=== PATIENT | male | born 2000 | race Caucasian/White ===

== ENCOUNTER 2022-06-07 00:36 | Emergency (ER) | payer SELFPAY ==
[~2022-06-07] VITALS: Ht 185.4 cm; Wt 81.8 kg
[2022-06-07 00:51] VITALS: BP 126/73; TEMP 97.9
[2022-06-07 01:26] VITALS: PULSE 012
== END 2022-06-07 01:26 | disposition home or self-care (01) ==
LOC: COL.ER 00:36
DX: S06.0X1A Concussion with loss of consciousness of 30 minutes or less, initial encounter (principal); S60.512A Abrasion of left hand, initial encounter; S80.811A Abrasion, right lower leg, initial encounter; S50.811A Abrasion of right forearm, initial encounter; S70.312A Abrasion, left thigh, initial encounter; V49.40XA Driver injured in collision with unspecified motor vehicles in traffic accident, initial encounter